=== PATIENT | male | born 1970 | race Caucasian/White ===

== ENCOUNTER 2017-08-09 06:16 | Inpatient (IN) | payer OTHER ==
[2017-08-09] VITALS (10 sets, daily range): BP systolic 126–161; BP diastolic 74–116
[~2017-08-09] VITALS: Ht 175.3 cm; Wt 76.2 kg
--- NOTE | ~2017-08-09 | O ---
[facility] [place] [address] OPERATIVE REPORT Name: RUTH SANCHEZ Room #: 409-P [facility] IN M.R.#: [id number] Admission: 08/09/17 Attend Phys: Ricky Cottrell MD Discharge: Date of : 72 Report #: [id number] THIS REPORT FOR: //name// CC: Josh Cottrell DATE OF SERVICE: 08/09/2017 PREOPERATIVE DIAGNOSIS: Right hand dog bite. POSTOPERATIVE DIAGNOSIS: Right hand dog bite. PROCEDURE: Irrigation and debridement of the right hand. SURGEON: Danie Onofre M.D. MAP COLORER: Justina Armas. ANESTHESIA: General. ESTIMATED BLOOD LOSS: Minimal. DRAINS: No drains. TOURNIQUET TIME: 15 minutes. DESCRIPTION OF PROCEDURE: The patient was brought to the operating room, where he was placed under general anesthesia. Once under adequate general anesthesia, his right upper extremity was prepped and draped in a sterile manner. The extremity was elevated and tourniquet placed to 250 mmHg. The patient had two dog bites in his thenar eminence, which were then opened with a 15 blade connected and this area of the wound was then irrigated copiously with normal saline solution. He had a dorsal and palmar wound single bite kelly wounds, which were then opened with hemostats and subsequently irrigated copiously with normal saline solution. Once complete, the volar wound was reapproximated with 3-0 nylon suture. The bite wounds themselves were left open. The wounds were irrigated copiously and closed with the 3-0 nylon as described above. The wounds were dressed with Xeroform, 4 x 4s, and a sterile soft compressive dressing was placed. Tourniquet was let down approximately 15 minutes. Fingers were pink and warm with good capillary refill. There were no complications from the procedure. The patient tolerated the procedure well and went to the recovery room without incident. By: [id number] Danie Onofre MD /nt
--- NOTE | ~2017-08-09 | HC ---
[facility] [place] [address] CONSULTATION Name: RUTH SANCHEZ Room #: 409-P ADM IN M.R.#: [id number] Admission: 08/09/17 Attend Phys: Ricky Cottrell MD Discharge: Date of : 72 Report #: [id number] THIS REPORT FOR: //name// CC: Josh Cottrell DATE OF SERVICE: 08/09/2017 ATTENDING PHYSICIAN: Dr. Cottrell. REASON FOR EVALUATION: Right hand dog bite injury with suspected infectious complications, likely deep. HISTORY OF PRESENT ILLNESS: Chart reviewed, patient examined. This is a 47-year-old otherwise healthy, who sustained injury as a result of a dog bite last evening of 08/08, this was not necessarily provoked, but it was not unprovoked. Neighbor's dog, which was a Ivorian [place]co, attempted to pet it, and did cut his right hand, held for a few seconds. Got some Neosporin on the puncture sites; however, this morning woke up and was significantly more painful, increasing inflammation with redness and swelling, was evaluated in the Emergency Room and subsequently admitted and placed on parenteral therapy. He is not overtly toxic at this point. Denies any pulmonary or gastrointestinal related complaints. ALLERGIES: None known. MEDICATIONS: Currently include Unasyn, fentanyl and hydrocodone. PAST MEDICAL HISTORY: Previous tonsillectomy. SOCIAL HISTORY: Drinks 10-12 beers daily. Nonsmoker, no illicit drug use. FAMILY HISTORY: Noncontributory. REVIEW OF SYSTEMS: As above. PHYSICAL EXAMINATION: GENERAL: He is pleasant, alert, cooperative. He is mildly anxious, appears in [id number] distress. VITAL SIGNS: Temperature 98.4, pulse 55, respirations 15, blood pressure 126/74. SKIN: Warm, dry, no rashes. HEENT: Remarkable as some teeth in general disrepair. NECK: Supple. LUNGS: Clear to auscultation. HEART: Regular. [facility] [address] [place] [address] CONSULTATION Name: DANIELRUTH PHI Room #: [address] [place] [address] IN M.R.#: [id number] Admission: 08/09/17 Attend Phys: Ricky Cottrell MD Discharge: Date of : 72 Report #: [id number] ABDOMEN: Soft, nontender, nondistended. Right hand has a dressing in place. This was not disturbed. GENITOURINARY AND RECTAL: Deferred. LABORATORY DATA: Sed rate of 15. Plain film of the hand showed mild dorsal soft tissue swelling without fracture or foreign body. Lactic acid 1.5. CRP of less than 2.0. Electrolytes: Sodium 139, potassium 3.9, chloride 105, bicarbonate 24, BUN and creatinine 8 and 0.9, glucose of 96. CBC: White count 9.8, H and H 14.9 and 43.2 and platelets of 321. ASSESSMENT: Dog bite injury, complicated by infection. PLAN: We will continue the parenteral therapy with ampicillin, sulbactam, follow it clinically. Some point may need to have additional evaluation. He may or may not require surgical intervention. Thank you, we will follow. <ELECTRONICALLY SIGNED> By: Lamont Donovan MD 08/09/17 1138 [id number] Lamont Donovan MD /nt
[2017-08-09 07:12] LABS: ABSOLUTE NEUTROPHILS 7.8 thou/uL (1.4-8.2); BASOPHILS 0.7 % (0.0-2.0); EOSINOPHILS 1.2 % (0.0-3.0); HEMATOCRIT 43.2 % (42.0-52.0); HEMOGLOBIN 14.9 gm/dL (14.0-18.0); LYMPHOCYTES 11.6 % (24.0-44.0); MCH 32.6 pg (26.0-34.0); MCHC 34.5 g/dL (28.0-37.0); MCV 94.4 fL (80.0-100.0); MONOCYTES 7.2 % (1.0-8.0); PLATELET COUNT 321 thou/uL (150-400); POLYS 79.3 % (36.0-66.0); RBC 4.58 mil/uL (4.50-6.00); RDW 13.3 % (10.5-14.5); WBC 9.8 thou/uL (4.0-11.0)
[2017-08-09 07:18] LABS: CALCIUM 8.8 mg/dL (8.5-10.1); CREATININE 0.9 mg/dL (0.7-1.3); POTASSIUM 3.9 mmol/L (3.5-5.1)
[2017-08-10 04:00] VITALS: BP 135/102
[2017-08-10 04:30] LABS: HEMATOCRIT 42.7 % (42.0-52.0); HEMOGLOBIN 14.5 gm/dL (14.0-18.0); MCH 32.7 pg (26.0-34.0); MCHC 33.9 g/dL (28.0-37.0); MCV 96.4 fL (80.0-100.0); RBC 4.43 mil/uL (4.50-6.00); WBC 7.8 thou/uL (4.0-11.0)
[2017-08-10 04:38] LABS: CALCIUM 8.8 mg/dL (8.5-10.1); MAGNESIUM 2.2 mg/dL (1.8-2.4); POTASSIUM 3.9 mmol/L (3.5-5.1)
[2017-08-10 07:49] VITALS: BP 144/105
[2017-08-10 09:53] VITALS: BP 124/87
[2017-08-10 20:00] VITALS: BP 133/97
[2017-08-11 04:00] VITALS: BP 138/98
[2017-08-11 06:42] LABS: HEMATOCRIT 40.8 % (42.0-52.0); HEMOGLOBIN 13.7 gm/dL (14.0-18.0); MCH 32.1 pg (26.0-34.0); MCHC 33.5 g/dL (28.0-37.0); MCV 95.7 fL (80.0-100.0); RBC 4.27 mil/uL (4.50-6.00); WBC 6.8 thou/uL (4.0-11.0)
[2017-08-11 07:05] LABS: CALCIUM 8.8 mg/dL (8.5-10.1); CREATININE 0.9 mg/dL (0.7-1.3); MAGNESIUM 2.1 mg/dL (1.8-2.4); POTASSIUM 3.9 mmol/L (3.5-5.1)
[2017-08-11 07:07] VITALS: BP 137/100
[2017-08-11] MEDS ORDERED: ROCEPHIN 11 GM/1001 IV (14:02)
[2017-08-11] MEDS ORDERED: PROBIOTIC1 EAC1 PO (14:02)
[2017-08-11 14:15] VITALS: BP 137/100
[2017-08-12] MEDS ORDERED: VITAMIN D1000 UNI1 PO (07:52)
[2017-08-12] MEDS ORDERED: VITAMIN B-12500 MCG PO (07:52)
== END 2017-08-11 16:00 | disposition home or self-care (01) | DRG 605 ==
LOC: ER 06:16 → 4N 07:40 → EROBS 07:40 → 4N 08:18
PROVIDERS: Emergency Medicine; Internal Medicine; Orthopaedic Surgery Foot and Ankle Surgery
PROC: 3E10X8Z Irrigation of Skin and Mucous Membranes using Irrigating Substance (ICD-10-PCS; principal; 2017-08-09)
PROC: 0JDJ3ZZ Extraction of Right Hand Subcutaneous Tissue and Fascia, Percutaneous Approach (ICD-10-PCS; 2017-08-09)
PROC: 05HY33Z Insertion of Infusion Device into Upper Vein, Percutaneous Approach (ICD-10-PCS; 2017-08-11)
DX: S61.451A Open bite of right hand, initial encounter (principal); L03.113 Cellulitis of right upper limb; E55.9 Vitamin D deficiency, unspecified; E53.8 Deficiency of other specified B group vitamins; Z90.89 Acquired absence of other organs; Z79.899 Other long term (current) drug therapy; W54.0XXA Bitten by dog, initial encounter; Y93.89 Activity, other specified; Y92.89 Other specified places as the place of occurrence of the external cause; Y99.8 Other external cause status; Z72.89 Other problems related to lifestyle; Z23 Encounter for immunization
CPT/HCPCS: 10091; 27000; 50010; 50101; 50386; 56527; 57091; 62110; 62900; 70005

== ENCOUNTER → 2017-08-12 | Outpatient (CLI) | payer OTHER ==
[~2017-08-12] MED LIST: PROBIOTIC1 EAC1 PO; ROCEPHIN 11 GM/1001 IV; VITAMIN B-12500 MCG PO; VITAMIN D1000 UNI1 PO
[2017-08-12 11:00] VITALS: BP 136/94
== END ==
LOC: OPONC 09:29
DX: S61.451D Open bite of right hand, subsequent encounter (principal); L03.113 Cellulitis of right upper limb
CPT/HCPCS: 95000

== ENCOUNTER → 2017-08-13 | Outpatient (CLI) | payer OTHER ==
[~2017-08-13] MED LIST changes: +TYLENOL EXTRA500 MG PO
[2017-08-13 10:45] VITALS: BP 140/100
== END ==
LOC: OPONC 01:24
DX: S61.451D Open bite of right hand, subsequent encounter (principal); L03.113 Cellulitis of right upper limb
CPT/HCPCS: 95000

== ENCOUNTER → 2017-08-14 | Outpatient (CLI) | payer OTHER ==
[2017-08-14 11:10] VITALS: BP 124/94
== END ==
LOC: OPONC
DX: S61.451D Open bite of right hand, subsequent encounter (principal); L03.113 Cellulitis of right upper limb
CPT/HCPCS: 95000

== ENCOUNTER 2017-08-15 20:54 | Inpatient (IN) | payer OTHER ==
[~2017-08-15] VITALS: Ht 175.3 cm; Wt 73.5 kg
--- NOTE | ~2017-08-15 | EKG ---
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
--- NOTE | ~2017-08-15 | HC ---
[facility] [place] [address] CONSULTATION Name: RUTH SANCHEZ Room #: 356-P ADM IN M.R.#: [id number] Admission: 08/15/17 Attend Phys: Don Zabala MD Discharge: Date of : 72 Report #: [id number] THIS REPORT FOR: //name// CC: Don Hazel MD [facility] physician/PCP Shabbir LEON HISTORY OF PRESENT ILLNESS: The patient is a 47-year-old male who had the unfortunate instance to get bitten by a dog on his right hand, then developed cellulitis, then was in the hospital for antibiotics and then came back several days after admission for shortness of breath, was found to have a right lower lobe pulmonary embolus. Ultrasound of the right arm showed a very short segment of right basilic clot, but note that this is the site of his dog bite and cellulitis. He also had had a PICC line in the left arm and there is no clot there. He also on his lower extremities had no DVT, but he did have a small area of thrombosed calf vein varicosity in the right side. He has no prior history of clots and no either DVTs, strokes or heart attacks at a young age. His past history is notable for history of some varicose veins with some difficulties about 2010. Here in the hospital, he denies any fevers or chills. He is feeling much better. His shortness of breath is better. He has coughed up some phlegm, a little bit of blood, but I think is very low volume. He also said that at home he had been not as active and lying around quite a bit because of his hand surgery. In the past, he had been drinking about 10 or 12 beers a day. Here in the hospital, he did have hypercoag panel drawn yesterday, which is of course pending. He is receiving anticoagulation at this time. He does feel like his breathing is becoming less labored. He had an echocardiogram, which did not show strain. 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 Also, history of recently the right basilic vein, small thrombus in the site of his dog bite. FAMILY HISTORY: No one else with any clots that he is aware of. SOCIAL HISTORY: A social situation, I believe he said, in the past had drunk 10-12 beers a day and also was a smoker of tobacco. He has a roommate who has 2 dogs. MEDICATIONS: Here in the hospital currently include meropenem 500 mg q.8, ceftriaxone 1 gram daily. He is on dabigatran 150 b.i.d., Lovenox 80 b.i.d., morphine p.r.n., Tylenol p.r.n., Zofran p.r.n. LABORATORY TESTS: Here include BUN of 10, creatinine of 0.9. Liver functions [address] [address] CONSULTATION Name: RUTH SANCHEZ Room #: 356-P ADM IN M.R.#: [id number] Admission: 08/15/17 Attend Phys: Don Zabala MD Discharge: Date of : 72 Report #: [id number] have been normal. Albumin 2.8. C-reactive protein had been 186.4. D-dimer had been elevated on admission at 211. White blood count 12.6 on admission, hemoglobin 13, MCV 94, platelet count 329. Differential, slight left shift. Hypercoag test panel pending include antithrombin 3, protein C activity, protein S activity, factor V Leiden, prothrombin gene mutation, DRVVT, anticardiolipin IgM, anticardiolipin IgG. Sed rate was 50. Vitamin B12 was 373. C. diff was negative, 25-hydroxy vitamin D was slightly low at 29.6. IMAGING: As mentioned included the CTA chest on August 15 showing the right lower lobe pulmonary emboli, the lower extremity ultrasound showing the right varicose vein thrombus and also upper extremity showing the right basilic vein clot. Note that none of these are DVTs. ASSESSMENT AND PLAN: 1. Pulmonary emboli occurring in a situation of a dog bite PICC line, cellulitis and decreased activity. Await hypercoag panel. Agree with anticoagulation at this time. Most likely, I would consider this a provoked clot given the cellulitis, surgery and PICC line. There is a question about the varicose veins. It may be worthwhile to have him see a vascular surgeon afterwards for consideration of possible stockings. Would suggest the patient sees me again in 2-10 weeks to follow up on hypercoag panel. 2. Dog bite and cellulitis. Defer to Dr. Leon and Dr. Brown regarding additional need for debridement and duration of antibiotics. 3. Followup as above. 4. Alcohol use. Encouraged cessation or greatly decreased intake. 5. Tobaccoism. Encourage cessation as this may contribute to his clot. By: 0820 1600 Jevon Ward MD /tejas
--- NOTE | ~2017-08-15 | 2DMMODE ---
[facility] [address] [place] [address] 2 D/M-MODE ECHOCARDIOGRAM Name: RUTH SANCHEZ Room #: 356-P ADM IN M.R.#: [id number] Admission: 08/15/17 Attend Phys: Michael Yoder MD Discharge: Date of : 72 Date of Service: 08/16/17 1139 Report #: [id number] THIS REPORT FOR: //name// APPROVED REPORT Study performed: 08/16/2017 08:24:09 EXAM: Comprehensive 2D, Doppler, and color-flow Echocardiogram Patient Location: Bedside Room #: 356 Status: on-call BSA: 1.92 HR: 85 bpm BP: 143/99 mmHg Rhythm: NSR Other Information Study Quality: Good Indications Pulmonary Embolism 2D Dimensions RVDd: 31.96 mm LVEF(%): 65.62 (>50%) IVSd: 10.27 (7-11mm) LVOT Diam: 21.74 (18-24mm) LVDd: 48.41 mm PWd: 10.34 (7-11mm) Ascending Ao: 35.49 (22-36mm) LVDs: 30.93 (25-40mm) Aortic Root: 34.73 mm Yap's LVEF: 65.62 % Volumes Left Atrial Volume (Systole) Single Plane 4CH: 37.34 mL Single Plane 2CH: 52.10 mL LA ESV Index: 25.00 mL/m2 Aortic Valve AoV Peak Ish.: 1.40 m/s AO Peak Gr.: 7.81 mmHg LVOT Max P.86 mmHg LVOT Max V: 0.98 m/s TOPHER Vmax: 2.61 cm2 Mitral Valve E/A Ratio: 1.4 MV Decel. Time: 210.50 ms [facility] [place] [address] 2 D/M-MODE ECHOCARDIOGRAM Name: RUTH SANCHEZ Room #: 356-P [facility] IN M.R.#: [id number] Admission: 08/15/17 Attend Phys: Michael Yoder MD Discharge: Date of : 72 Date of Service: 08/16/17 1139 Report #: [id number] MV E Max Ish.: 0.65 m/s MV A Ish.: 0.48 m/s MV PHT: 61.04 ms IVRT: 89.97 ms Pulmonary Valve PV Peak Ish.: 1.16 m/s PV Peak Gr.: 5.42 mmHg Pulmonary Vein P Vein S: 0.47 m/s P Vein A: 0.34 m/s P Vein D: 0.34 m/s P Vein A Dur.: 107.3 msec P Vein S/D Ratio: 1.38 Tricuspid Valve RAP Estimate: 5.00 mmHg Left Ventricle The left ventricle is normal size. There is normal LV segmental wall motion. There is normal left ventricular wall thickness. Left ventricular systolic function is normal. LVEF is 55-60%. The left ventricular diastolic function is normal. Right Ventricle The right ventricle is normal size. The right ventricular systolic function is normal. Atria The left atrium size is normal. The right atrium size is normal. Aortic Valve The aortic valve is normal in structure. No aortic regurgitation is present. There is no aortic valvular stenosis. Mitral Valve The mitral valve is normal in structure. Trace to mild mitral regurgitation. Tricuspid Valve The tricuspid valve is normal in structure. There is no tricuspid valve regurgitation noted. Unable to assess PA pressure. Pulmonic Valve The pulmonary valve is normal in structure. Trace pulmonic [place] [address] 2 D/M-MODE ECHOCARDIOGRAM Name: RUTH SANCHEZ PHI Room #: 356-P [facility] IN M.R.#: [id number] Admission: 08/15/17 Attend Phys: Michael Yoder MD Discharge: Date of : 72 Date of Service: 08/16/17 1139 Report #: [id number] Great Vessels The aortic root is normal in size. The ascending aorta is normal in size. IVC is normal in size and collapses >50% with inspiration. Pericardium There is no pericardial effusion. <Conclusion> 1. Normal echocardiogram with Doppler EF 60% 2. Pulmonary artery pressure could not be reliably ascertained 3. No pericardial effusion <ELECTRONICALLY SIGNED> By: Yoshi Fernandez MD, FACC 08/16/17 1139 1139 1139 Yoshi Fernandez MD, FACC /INF
[~2017-08-15 20:54] MED LIST changes: -TYLENOL EXTRA500 MG PO
[2017-08-15 21:11] VITALS: BP 153/93
[2017-08-15 21:43] LABS: ABSOLUTE NEUTROPHILS 12.2 thou/uL (1.4-8.2); BASOPHILS 0.7 % (0.0-2.0); EOSINOPHILS 0.3 % (0.0-3.0); HEMATOCRIT 40.2 % (42.0-52.0); HEMOGLOBIN 13.7 gm/dL (14.0-18.0); LYMPHOCYTES 6.9 % (24.0-44.0); MCH 32.4 pg (26.0-34.0); MCHC 34.2 g/dL (28.0-37.0); MCV 94.9 fL (80.0-100.0); MONOCYTES 10.1 % (1.0-8.0); PLATELET COUNT 285 thou/uL (150-400); RBC 4.24 mil/uL (4.50-6.00); RDW 12.8 % (10.5-14.5); WBC 14.9 thou/uL (4.0-11.0)
[2017-08-15 21:52] LABS: ANION GAP 11 mmol/L (7-16); BUN 18 mg/dL (7-18); CALCIUM 9.1 mg/dL (8.5-10.1); CHLORIDE 100 mmol/L (98-107); CO2 25 mmol/L (21-32); GLUCOSE 124 mg/dL (74-106); POTASSIUM 3.6 mmol/L (3.5-5.1); SODIUM 136 mmol/L (136-145)
[2017-08-15 22:01] LABS: TROPONIN-I <0.06 ng/mL (<0.06)
[2017-08-16 00:30] VITALS: BP 164/117
[2017-08-16 01:54] VITALS: BP 137/100
[2017-08-16 04:12] LABS: HEMATOCRIT 38.7 % (42.0-52.0); HEMOGLOBIN 13.2 gm/dL (14.0-18.0); MCH 32.2 pg (26.0-34.0); MCV 94.7 fL (80.0-100.0); RBC 4.09 mil/uL (4.50-6.00); RDW 12.6 % (10.5-14.5); WBC 12.5 thou/uL (4.0-11.0)
[2017-08-16 04:24] LABS: CALCIUM 8.7 mg/dL (8.5-10.1); CREATININE 0.9 mg/dL (0.7-1.3); POTASSIUM 3.3 mmol/L (3.5-5.1)
[2017-08-16 04:40] VITALS: BP 143/99
[2017-08-16 07:15] VITALS: BP 144/94
[2017-08-16 17:46] VITALS: BP 144/97
[2017-08-16 19:28] VITALS: BP 145/95
[2017-08-17 04:20] VITALS: BP 148/91
[2017-08-17 05:54] LABS: HEMATOCRIT 39.1 % (42.0-52.0); HEMOGLOBIN 13.1 gm/dL (14.0-18.0); MCH 32.1 pg (26.0-34.0); MCHC 33.6 g/dL (28.0-37.0); MCV 95.6 fL (80.0-100.0); RBC 4.09 mil/uL (4.50-6.00); RDW 12.7 % (10.5-14.5); WBC 14.1 thou/uL (4.0-11.0)
[2017-08-17 06:11] LABS: ALBUMIN 3.1 g/dL (3.4-5.0); POTASSIUM 3.6 mmol/L (3.5-5.1); TOTAL BILIRUBIN 0.8 mg/dL (<0.1-1.0); TOTAL PROTEIN 7.6 g/dL (6.4-8.2)
[2017-08-17 08:31] VITALS: BP 137/93
[2017-08-17 11:36] VITALS: BP 135/92
[2017-08-17 16:03] VITALS: BP 156/96
[2017-08-17 19:42] VITALS: BP 153/101
[2017-08-18 04:11] LABS: HEMATOCRIT 38.6 % (42.0-52.0); MCH 31.7 pg (26.0-34.0); MCHC 33.6 g/dL (28.0-37.0); MCV 94.1 fL (80.0-100.0); RBC 4.1 mil/uL (4.50-6.00); RDW 12.7 % (10.5-14.5); WBC 12.6 thou/uL (4.0-11.0)
[2017-08-18 04:15] VITALS: BP 153/105
[2017-08-18 04:26] LABS: ALBUMIN 2.8 g/dL (3.4-5.0); CALCIUM 8.9 mg/dL (8.5-10.1); CREATININE 0.9 mg/dL (0.7-1.3); POTASSIUM 3.9 mmol/L (3.5-5.1); TOTAL BILIRUBIN 0.3 mg/dL (<0.1-1.0); TOTAL PROTEIN 7.4 g/dL (6.4-8.2)
[2017-08-18 07:41] VITALS: BP 140/97
[2017-08-18 11:11] VITALS: BP 142/96
[2017-08-18] MEDS ORDERED: TYLENOL EXTRA500 MG PO (13:16)
[2017-08-18 15:23] VITALS: BP 157/99
[2017-08-18 20:25] VITALS: BP 147/95
[2017-08-19 04:54] VITALS: BP 131/91
[2017-08-19 08:08] VITALS: BP 145/103
[2017-08-19 11:45] VITALS: BP 133/92
[2017-08-19] MEDS ORDERED: AUGMENTIN 875-1 EACH PO (15:05)
[2017-08-19] MEDS ORDERED: PROBIOTIC1 EAC1 PO (15:05)
[2017-08-19] MEDS ORDERED: XARELTO15 MG PO (15:05)
[2017-08-19] MEDS ORDERED: XARELTO20 MG PO (15:05)
[2017-08-19] MEDS ORDERED: WORK RELEASE (15:08)
[2017-08-19] MEDS ORDERED: VITAMIN D2000 UNIT PO (15:11)
[2017-08-19] MEDS ORDERED: VITAMIN B-12500 MCG PO (15:11)
[2017-08-19 15:35] VITALS: BP 133/92
[2017-08-19 16:25] VITALS: BP 133/92
== END 2017-08-19 16:26 | disposition home or self-care (01) | DRG 871 ==
LOC: ER 20:54 → 3W 23:19 → EROBS 23:19 → 3W 08-16 00:16
PROVIDERS: Emergency Medicine; Hospitalist; Internal Medicine; Nurse Practitioner Family
DX: A41.9 Sepsis, unspecified organism (principal); I26.09 Other pulmonary embolism with acute cor pulmonale; J18.9 Pneumonia, unspecified organism; L03.113 Cellulitis of right upper limb; R04.2 Hemoptysis; J98.11 Atelectasis; D68.59 Other primary thrombophilia; F17.200 Nicotine dependence, unspecified, uncomplicated; E87.6 Hypokalemia; K05.6 Periodontal disease, unspecified; I83.93 Asymptomatic varicose veins of bilateral lower extremities; E53.8 Deficiency of other specified B group vitamins; E55.9 Vitamin D deficiency, unspecified; M54.9 Dorsalgia, unspecified; W54.0XXA Bitten by dog, initial encounter; Z68.23 Body mass index [BMI] 23.0-23.9, adult; Y93.89 Activity, other specified; Z72.89 Other problems related to lifestyle; Y92.89 Other specified places as the place of occurrence of the external cause; Y99.8 Other external cause status; Z79.899 Other long term (current) drug therapy
CPT/HCPCS: 10779

== ENCOUNTER → 2017-08-15 | Outpatient (CLI) | payer OTHER ==
[2017-08-15 11:28] VITALS: BP 133/84
== END ==
LOC: OPONC
DX: S61.451D Open bite of right hand, subsequent encounter (principal); L03.113 Cellulitis of right upper limb
CPT/HCPCS: 95000

== ENCOUNTER → 2018-02-12 | Outpatient (CLI) | payer BC, OTHER ==
[~2018-02-12] MED LIST changes: +AUGMENTIN 875-1 EACH PO; +TYLENOL EXTRA500 MG PO; +VITAMIN D2000 UNIT PO; +WORK RELEASE; +XARELTO15 MG PO; +XARELTO20 MG PO
== END ==
LOC: ULTRA 12:21
DX: M79.89 Other specified soft tissue disorders (principal); I26.99 Other pulmonary embolism without acute cor pulmonale